=== PATIENT | female | born 1940 | race Caucasian/White ===

== ENCOUNTER 2017-03-18 17:46 | Inpatient (IN) | payer MEDICARE, BC ==
[~2017-03-18] VITALS: Ht 157.5 cm; Wt 95.3 kg
[2017-03-18 19:37] LABS: HEMOGLOBIN 14.1 gm/dl (12.3-15.3); RED BLOOD COUNT 4.45 M/UL (4.00-5.10); WHITE BLOOD COUNT 10.3 K/UL (4.5-11.0)
[2017-03-18 20:04] LABS: BUN/CREATININE RATIO 18 (0-10)
[2017-03-19] MEDS ORDERED: TYLENOL 325MG325 MG PO (11:47)
[2017-03-19] MEDS ORDERED: ADULT LOW DOSE81 MG PO (11:48)
[2017-03-19] MEDS ORDERED: PLAVIX 75 MG TA75 MG PO (11:49)
[2017-03-19] MEDS ORDERED: NEURONTIN 300300 MG PO (11:50)
[2017-03-19] MEDS ORDERED: LISINOPRIL40 MG PO (11:59)
[2017-03-19] MEDS ORDERED: LOPRESSOR100 MG PO (12:03)
[2017-03-19] MEDS ORDERED: NIFEDIPINE ER90 MG PO (12:04)
[2017-03-19] MEDS ORDERED: MIRALAX17 GM PO (12:05)
[2017-03-19] MEDS ORDERED: PROAIR HFA8.5 GM INH (12:08)
[2017-03-19] MEDS ORDERED: ZOCOR 40 MG TAB40 MG GT (12:08)
[2017-03-19] MEDS ORDERED: ZOCOR 40 MG TAB40 MG PO (12:09)
[2017-03-19] MEDS ORDERED: TERAZOSIN HCL10 MG PO (12:10)
[2017-03-19] MEDS ORDERED: VITAMIN D32000 UNIT PO (12:14)
[2017-03-19] MEDS ORDERED: LANTUS100 UNIT/1 SQ (12:18)
[2017-03-19] MEDS ORDERED: HUMALOG100 UNIT/1 SQ (12:20)
[2017-03-21] MEDS ORDERED: LEVAQUIN750 MG PO (12:06)
--- NOTE | 2017-03-21 15:08 | NUR ---
RIGHT UPPER ARM IV SITE SWELLING, HAS BEEN PUTTING A WARM COMPRESS AND SHOWING SIGNS OF IMPROVEMENT. PATIENT CONTINUES TO DENIES PAIN. PATIENT REQUEST D/T LONG TRIP GOING HOME REQUEST TO TAKE A NAP PRIOR TO DISCHARGE.
== END 2017-03-21 16:03 | disposition home or self-care (01) | DRG 871 ==
LOC: ER1 17:46 → ZEROF 03-19 01:50 → MED SURG 4 03-19 01:50
PROVIDERS: Specialist/Technologist Athletic Trainer; ADMIT Internal Medicine
DX: A41.9 Sepsis, unspecified organism (principal); J18.9 Pneumonia, unspecified organism; J96.21 Acute and chronic respiratory failure with hypoxia; J81.1 Chronic pulmonary edema; I10 Essential (primary) hypertension; J45.909 Unspecified asthma, uncomplicated; J20.9 Acute bronchitis, unspecified; E11.65 Type 2 diabetes mellitus with hyperglycemia; T38.0X5A Adverse effect of glucocorticoids and synthetic analogues, initial encounter; Z79.4 Long term (current) use of insulin; Z83.3 Family history of diabetes mellitus; Z84.89 Family history of other specified conditions; Z99.81 Dependence on supplemental oxygen
CPT/HCPCS: 36415; 71020; 80048; 80053; 82550; 82553; 82962; 83605; 83874; 84484; 85025; 87040; 93005; 94640; 94664; 96372; 96374; 96375; 99285; J0692; J1650; J1815; J1940; J1956; J2920; J3370; J7040; J7050; Q9963